=== PATIENT | female | born 1965 | race Caucasian/White ===

== ENCOUNTER 2023-10-27 18:51 | Emergency (ER) | payer OTHER, SELFPAY ==
[2023-10-27 18:56] VITALS: BP 186/112
--- NOTE | 2023-10-27 20:47 | ED.GENMED ---
History of Present Illness
General
Chief Complaint: Musculo-Skeletal Complaint
Source: patient and family
Time Seen by Provider: 10/27/23 19:42
Nursing documentation reviewed up to this point in time: agreed with
Travel History
Have you had any contact with someone who has COVID-19?: No
Do you have any symptoms of coronavirus? Fever > 100 degrees, chills, cough, shortness of breath, sore throat, loss of taste or smell, muscle aches, or headache?: No
History of Present Illness
History of Present Illness:
Patient is a 58 yo female with PMH of RA, hypothyroidism, DM, who presents to the emergency department accompanied by her daughter for evaluation of left knee pain. Patient reports that 1. 5 weeks ago, she was walking and felt a pop followed by a
sudden pain in her left knee. Patient denies that there was any injury or trauma, denies there was any falls. Patient reports that she has had pain over the medial aspect of her knee ever since. Patient reports no pain with rest but significant
pain with standing and ambulating. Patient denies any pain radiating down her leg or upper leg. Patient denies any numbness, weakness, tingling of the extremity. Patient denies any previous issues with this knee in the past. Patient reports
taking Vicodin at home without improvement in her pain. She reports she has tried taking ibuprofen with some relief in her pain.
Past History
Past History
ED Past Medical History: Hyperthyroidism
ED Past Surgical History: Gynecological
Social History
Tobacco: Smoker
Living: with family
Review of Systems
Review of Systems
All Other Systems: Not applicable
Constitutional: Reports no symptoms
EENT: Reports no symptoms
Respiratory: Reports no symptoms
Cardiac: Reports no symptoms
ABD/GI: Reports no symptoms
: Reports no symptoms
Musculoskeletal: Reports other (Left knee pain)
Skin: Reports no symptoms
Neurological: Reports no symptoms
Endocrine: Reports no symptoms
Hematologic/Lymphatic: Reports no symptoms
Psychiatric: Reports no symptoms
Phy Exam
General Physical Exam
General Presentation: well appearing and no apparent distress
General Skin: warm and dry
General Habitus: normal
General Mental: alert
General Hydration: appears well hydrated
ENT Exam
ENT Exam: EOMI, pharynx normal, neck supple and normocephalic
Eye Exam
Eye Exam: PERRL, cornea clear and conjunctiva normal
Cardiovascular Exam
Cardiovascular Exam: normal peripheral pulses
Pulmonary Exam
Pulmonary Exam: no respiratory distress
Neurological Exam
Neurological Exam: alert, oriented x3, no motor deficits and speech normal
Musculoskeletal Exam
Musculoskeletal Exam: other (no swelling, erythema, deformity over the left knee, there is ttp over the medial aspect of the left knee with decreased flexion secondary to pain, but full extension, negative anterior/posterior drawer test, negative
varus/valgus stress test, 2+ DP pulse, sensation intact to light touch distally)
Skin Exam
Skin Exam: normal color, warm/dry, no rash and no petechia
Psychiatric Exam
Psychiatric Exam: normal mood/affect
Course
Orders/Labs/Results
Orders:
Orders
10/27/23 19:01
Knee, Left 4 or More Views [CR Knee - Left 4 Or More View*] Urgent
Comment:
Reason For Exam: pain, heard a pop while walking, no trauma
Vital Signs
Initial and Last Documented VS:
Initial Vital Signs
Temp Pulse Resp BP Pulse Ox
98.0 F 89 18 186/112 98
10/27/23 18:56 10/27/23 18:56 10/27/23 18:56 10/27/23 18:56 10/27/23 18:56
Last Documented Vital Signs
Temp Pulse Resp BP Pulse Ox
98.0 F 89 18 186/112 98
10/27/23 18:56 10/27/23 18:56 10/27/23 18:56 10/27/23 18:56 10/27/23 18:56
*Critical Care Note
Total Time (30-74mins, 75-104mins- exclusive of procedures): Not Applicable
Update Note
Update Note:
58-year-old female presents with sudden onset of left knee pain 1.5 weeks ago. Patient denies specific injury or trauma. On arrival, patient is hypertensive but in pain, afebrile. On exam, patient is well-appearing, she is in no acute distress,
she is neurovascularly intact. Radiographs of the left knee were obtained and demonstrate no acute abnormality to account for the patient's pain. I explained to the patient and her daughter that I suspect an internal knee derangement at this time
such as meniscus injury versus MCL injury. Patient was provided with an Luis wrap to use during the day and was educated on continued supportive care. Will recommend the patient follow-up with orthopedics, she states that she already has an
orthopedic surgeon that she has seen in the past that she would like to follow-up with. Patient and her daughter were also educated on return precautions, they expressed understanding of the plan and agreed.
ED Attending Note
-
Portions of this chart may have been created with voice recognition software.� Occasional wrong word or��sound alike� substitutions may have occurred due to the inherent limitations of voice recognition software.
Discharge Plan
Departure
Patient Disposition: Home (Routine Discharge)
Date of Disposition: 10/27/23
Time of Disposition: 20:14
Patient with high blood pressure during this ER visit?: Yes
Condition: Good
Covid-19: Not Applicable
Discharge Problem:
Acute pain of right knee
Instructions: Knee Pain (DC)
Referrals:
Follow up with, your strategic planning specialist [Other] - Follow up in 5-7 days
Activity Restrictions/Additional Instructions:
You were seen in the emergency department for evaluation of pain over the right knee. You had x-rays while in the emergency department which show no bony injury. The pain in your knee could be due to a problem with the meniscus or one of the
ligaments. Please use the Luis wrap that was provided during the day but remove it at night. Please try to rest and elevate the knee when possible. Please use ice to the area for 20 minutes at a time 4-5 times a day. You may take ibuprofen 600 mg
every 6 hours or naproxen 500mg twice daily for pain and inflammation. Please follow up with the strategic planning specialist for definitive diagnosis and treatment. Please return to the emergency department for increased swelling, redness, fever greater
than 100.4F, or for any other worsening or concerning symptoms.
Interventions
Interventions:
*Risk Screen - Suicide Last Done: 10/27/23 19:01
*General Assessment Last Done: 10/27/23 19:01
ED- Fall Risk Assessment Last Done: 10/27/23 20:28
*ED COVID-19 Vaccine History Last Done: 10/27/23 19:01
*Nursing Disposition Last Done: 10/27/23 20:28
ED-Musculoskeletal Assessment Last Done: 10/27/23 20:27
Discharge Date and Time
Discharge Date/Time: 10/27/23 20:29
== END 2023-10-27 20:29 | disposition home or self-care (01) ==
LOC: EMR 18:51
PROVIDERS: EMERGENCY PHYSICIAN Emergency Medicine; FAMILY PHYSICIAN Family Medicine
DX: M25.562 Pain in left knee (principal); R03.0 Elevated blood-pressure reading, without diagnosis of hypertension; E03.9 Hypothyroidism, unspecified; E11.9 Type 2 diabetes mellitus without complications; F17.200 Nicotine dependence, unspecified, uncomplicated
CPT/HCPCS: 99283; 73564

== ENCOUNTER → 2023-10-31 11:48 | Outpatient (REF) | payer OTHER, SELFPAY | LOC: MRI 3T 11:48 | PROVIDERS: ATTENDING PHYSICIAN Family Medicine | DX: M25.562 Pain in left knee (principal); R29.898 Other symptoms and signs involving the musculoskeletal system; Z91.81 History of falling | CPT/HCPCS: 73721 ==

== ENCOUNTER → 2024-07-20 14:32 | Outpatient (REF) | payer OTHER, SELFPAY ==
[2024-07-21 22:05] LABS: Rubella Positive
[2024-07-22 11:18] LABS: Mumps Virus IgG Positive; Rubeola (Measles) IgG Positive; Varicella Zoster IgG (VZV) Positive
== END ==
LOC: OHS 14:32
PROVIDERS: ATTENDING PHYSICIAN Nurse Practitioner Family
DX: Z23 Encounter for immunization (principal)
CPT/HCPCS: 36415; 86735; 86762; 86765; 86787